=== PATIENT | female | born 1995 | race Caucasian/White ===

== ENCOUNTER 2021-10-31 11:50 | Inpatient (IN) ==
[2021-10-31] MEDS ORDERED: HYDROmorphone INJ 1 MG/ML SYRINGE IV STA ×2 (12:20→15:56)
[2021-10-31] MEDS ORDERED: ONDANSETRON INJ 2 MG/ML 2 ML VIAL IV STA (12:20)
--- NOTE | 2021-10-31 12:24 | Emergency Department Note ---
Impression & Plan Biliary obstruction, Elevated bilirubin ED Provider Note Name: VANESA FABIAN Age: 26 Sex: F Arrives Via: Walk-In Informant: Patient ED Provider: Andrew Alvarez MD Chief Complaint: Right upper quadrant pain Impression: As per impressions above Medical Decision Making: Pleasant 23-year-old female with a past medical history who arrives for acute onset of right upper quadrant pain over the last 6 days. She has been seen in outside hospital twice with outside hospital ultrasound revealing gallbladder stones and labs revealing elevated bilirubin and LFTs. Initial plan was for her to see general surgery in the next few days however due to concerning pain she returned to the ER and came here. On evaluation patient is quite uncomfortable and was made more comfortable with IV Dilaudid. Rather than get ultrasound given its already been done multiple twice it was decided to go ahead with CT scanning. CT scan reveals multiple gallstones but no acute other findings. Her labs are consistent with elevated LFTs and a bilirubin of 4. Given this I suspect there is an obstructing biliary stone. Patient was given further pain meds due to return of pain. She does not have a fever nor white count and after discussion with GI we will hold off on antibiotics at this time. I did discuss briefly with general surgery to make them aware that they agree with GI evaluation and management first. Discussing with GI the hospitalist team was consulted for further management. At this time patient is not septic. Prior Medical Record and Triage/Nursing Notes reviewed by Me Additional history obtained from [facility] records Differentials:Cholecystitis, biliary dysfunction, obstruction biliary stone, sepsis, diverticulitis, IVC clot, aortic aneurysm/rupture/dissection, mesenteric ischemia, , appendicitis, amongst other pathologies. Vital Signs: reviewed and remarkable for no significant abnormalities Interventions: Dilaudid 1 mg IV x2, normal saline bolus, Zofran IV Labs:Reviewed and remarkable for elevated LFTs including an elevated bilirubin Imaging:CT scan of the abdomen pelvis with IV contrast reveals gallstones see radiologist read below Consults:Dr. Lea of general surgery, Dr. Mays of GI, Dr Sears of [facility] Hospitalist Plan: Disposition:Hospitalization. Condition: Good History of Present Illness:6-year-old female arrives for evaluation of right upper quadrant pain patient notes that she started having pain about 6 days ago. Pain is gradually been worsening. Pain is worse with movement and eating. Pain is slightly better if she does not eat anything. Over the last 24 hours pain has been constant without improvement. She has been seen at local ER for her this twice in the last few days with an ultrasound which showed gallstones but she notes nothing else. She did not have a CT scan at that time but did have multiple labs which she reports are normal. Patient denies any trauma, injuries, falls. Patient denies any diarrhea no blood in stool. She notes vomit is not bloody. Pain does come in waves and is sharp in nature. Pain is in right upper quadrant but radiates to the right flank and sometimes in the right lower chest. Pain is worse with a deep inspiration and at times she feels like she cannot catch her breath when the pain is really severe. She had no urinary burning no diarrhea no chest pain no syncope no headache no neck pain no calf pain no leg swelling no bleeding no bruising no fevers no chills no other symptoms. Patient has no previous abdominal surgeries. Patient has been taking [place] for the pain with minimal relief. ROS: See above HPI for pertinent positives & negatives. A total of 10 systems reviewed and were otherwise negative. Past Medical History:None Past Surgical History:No previous surgeries Family History:Father and brother both with gallbladder dysfunction have had them removed Social History:Patient denies smoking denies alcohol use denies drug use. Patient has 1 daughter at home. Home Medications:None Allergies:Sulfa Vitals:Blood Pressure: 132/81, Pulse 74, RR 18, T 36.7C, O2 100% on RA Physical Exam: GENERAL: Patient is very uncomfortable appearing and in moderate distress. EYES: No scleral icterus, unremarkable pupils. ENT: Mucous membranes moist, no nasal congestion. NECK: No masses appreciated, nomeningismus, trachea is midline. RESPIRATORY: No dyspnea. Clear to auscultation and equal bilaterally. No wheeze, no rhonchi. CARDIOVASCULAR: Regular rate and rhythm.No murmurs, rubs, gallops appreciated. GASTROINTESTINAL: Severe TTP over RUQ. Otherwise abdomen soft, non-tender, no peritonitis.Bowel sounds positive.No masses appreciated. BACK: No midline tenderness, no CVA tenderness EXTREMITIES: Normal motion all extremities, no cyanosis, no edema. NEUROLOGIC: Alert and oriented, no acute motor or sensory deficits, no focal weakness, cranial nerves grossly intact. SKIN: No rash, no jaundice, no diaphoresis. PSYCH: Appropriate GCS: 15 ED Course: Times/Reassessments: Patient's pain is controlled with Dilaudid and she is stable without peritonitis. She is agreeable to hospitalization for further management of her issues. Andrew Alvarez MD Past Med/Surg History Social History Feels Safe at Home: Yes Home Meds Home Medications Medication Instructions Recorded Confirmed ondansetron HCl 4 mg tablet 4 mg PO DAILY PRN 10/31/21 10/31/21 Results & Data (ED) Vital Signs Vital Signs - 24 hr 10/31/21 11:56 10/31/21 13:00 10/31/21 15:00 Temperature 36.7 C Temperature Source Temporal Artery Scan Pulse Rate 74 Pulse Rate [Right Finger] 73 62 Pulse Rhythm [Right Finger] Regular Regular Pulse Strength [Right Finger] Normal Normal Respiratory Rate 18 18 18 Respiratory Effort / Characteristics Non-Labored Non-Labored Non-Labored Respiratory Depth Normal Normal Normal Respiratory Pattern Regular Regular Regular Blood Pressure 132/81 Blood Pressure [Right Arm] 128/66 132/75 Blood Pressure Mean 98 Blood Pressure Mean [Right Arm] 86 94 Blood Pressure Position Sitting Blood Pressure Position [Right Arm] Lying Lying Pulse Oximetry 100 93 100 Oxygen Delivery Method Room Air Room Air Room Air Sepsis Recent Fever Within 48 Hours No Sepsis New/Unexplained Change in Mental Status No Sepsis Action Taken by Nursing No Action Required Laboratory Data Result diagrams: 10/31/21 12:40 10/31/21 12:40 Lab Results 10/31/21 10/31/21 10/31/21 Range/Units 12:40 12:40 12:40 WBC 7.76 (4.8-10.8) K/uL RBC 4.74 (4.2-5.4) M/uL Hgb 13.9 (12.0-16.0) g/dL Hct 41.6 (37-47) % MCV 87.8 (80-100) fL MCH 29.3 (25-34) pg MCHC 33.4 (32-36) g/dL RDW Std Deviation 41.8 (36.4-46.3) fL RDW Coeff of Bart 12.9 (11.5-14.5) % Plt Count 335 (130-400) K/uL MPV 10.2 (7.4-10.4) fL Immature Gran % (Auto) 0.1 % Neut % (Auto) 68.2 % Lymph % (Auto) 21.9 % [place] % (Auto) 6.7 % Eos % (Auto) 3.0 % Baso % (Auto) 0.1 % Neut # (Auto) 5.29 (1.4-6.5) K/uL Lymph # (Auto) 1.70 (1.2-3.4) K/uL [place] # (Auto) 0.52 (0.11-0.59) K/uL Eos # (Auto) 0.23 (0-0.5) K/uL Baso # (Auto) 0.01 (0-0.2) K/uL Immature Gran # (Auto) 0.01 (0.00-0.02) K/uL D-Dimer Cancelled Sodium 137 (136-145) mmol/L Potassium 3.9 (3.5-5.1) mmol/L Chloride 103 (98-107) mmol/L Carbon Dioxide 24 (21-32) mmol/L Anion Gap 10 (3-11) BUN 8 (6-23) mg/dl Creatinine 0.71 (0.6-1.2) mg/dl Est Cr Clr Drug Dosing 136.0 ml/min Est GFR ( Amer) 135.3 ml/min Est GFR (Non-Af Amer) 116.7 ml/min BUN/Creatinine Ratio 11.3 (10-20) Glucose 90 (70-99(Fasting)) mg/dl Calcium 9.3 (8.5-10.1) mg/dl Total Bilirubin 4.5 H (0.2-1.0) mg/dl Direct Bilirubin 2.8 H (0-0.2) mg/dl AST 236 H (13-39) U/L ALT 603 H (7-52) U/L Alkaline Phosphatase 179 H (34-104) U/L Troponin I < 0.03 (0-0.04) ng/ml Total Protein 7.5 (6.0-8.3) gm/dl Albumin 3.9 (3.4-5.0) gm/dl Lipase 25 (11-82) U/L Urine Color Urine Appearance (Clear) Urine pH (4.5-7.5) Ur Specific [place] (1.000-1.030) Urine Protein (Negative) Urine Glucose (UA) (Negative) Urine Ketones (Negative) Urine Blood (Negative) Urine Nitrite (Negative) Urine Bilirubin (Negative) Urine Urobilinogen (Negative) Ur Leukocyte Esterase (Negative) Urine WBC (Auto) (0-5) /hpf Urine RBC (Auto) (0-4) /hpf U Hyaline Cast (Auto) (0-5) /lpf U Epithel Cells (Auto) (0-5) /lpf Urine Bacteria (Auto) (Negative) Urine Test (Negative) SARS-CoV-2, RNA, NAAT (NEGATIVE) 10/31/21 10/31/21 10/31/21 Range/Units 13:33 13:33 13:48 WBC (4.8-10.8) K/uL RBC (4.2-5.4) M/uL Hgb (12.0-16.0) g/dL Hct (37-47) % MCV (80-100) fL MCH (25-34) pg MCHC (32-36) g/dL RDW Std Deviation (36.4-46.3) fL RDW Coeff of Bart (11.5-14.5) % Plt Count (130-400) K/uL MPV (7.4-10.4) fL Immature Gran % (Auto) % Neut % (Auto) % Lymph % (Auto) % [place] % (Auto) % Eos % (Auto) % Baso % (Auto) % Neut # (Auto) (1.4-6.5) K/uL Lymph # (Auto) (1.2-3.4) K/uL [place] # (Auto) (0.11-0.59) K/uL Eos # (Auto) (0-0.5) K/uL Baso # (Auto) (0-0.2) K/uL Immature Gran # (Auto) (0.00-0.02) K/uL D-Dimer 810 H* Sodium (136-145) mmol/L Potassium (3.5-5.1) mmol/L Chloride (98-107) mmol/L Carbon Dioxide (21-32) mmol/L Anion Gap (3-11) BUN (6-23) mg/dl Creatinine (0.6-1.2) mg/dl Est Cr Clr Drug Dosing ml/min Est GFR ( Amer) ml/min Est GFR (Non-Af Amer) ml/min BUN/Creatinine Ratio (10-20) Glucose (70-99(Fasting)) mg/dl Calcium (8.5-10.1) mg/dl Total Bilirubin (0.2-1.0) mg/dl Direct Bilirubin (0-0.2) mg/dl AST (13-39) U/L ALT (7-52) U/L Alkaline Phosphatase (34-104) U/L Troponin I (0-0.04) ng/ml Total Protein (6.0-8.3) gm/dl Albumin (3.4-5.0) gm/dl Lipase (11-82) U/L Urine Color Dark Yellow Urine Appearance Clear (Clear) Urine pH 7.5 (4.5-7.5) Ur Specific [place] 1.016 (1.000-1.030) Urine Protein Negative (Negative) Urine Glucose (UA) Negative (Negative) Urine Ketones 1+ H (Negative) Urine Blood Negative (Negative) Urine Nitrite Negative (Negative) Urine Bilirubin 3+ H (Negative) Urine Urobilinogen Negative (Negative) Ur Leukocyte Esterase Trace H (Negative) Urine WBC (Auto) 1-5 (0-5) /hpf Urine RBC (Auto) 0-4 (0-4) /hpf U Hyaline Cast (Auto) 1-5 (0-5) /lpf U Epithel Cells (Auto) >30 H (0-5) /lpf Urine Bacteria (Auto) Negative (Negative) Urine Test Negative (Negative) SARS-CoV-2, RNA, NAAT (NEGATIVE) 10/31/21 Range/Units 14:15 WBC (4.8-10.8) K/uL RBC (4.2-5.4) M/uL Hgb (12.0-16.0) g/dL Hct (37-47) % MCV (80-100) fL MCH (25-34) pg MCHC (32-36) g/dL RDW Std Deviation (36.4-46.3) fL RDW Coeff of Bart (11.5-14.5) % Plt Count (130-400) K/uL MPV (7.4-10.4) fL Immature Gran % (Auto) % Neut % (Auto) % Lymph % (Auto) % [place] % (Auto) % Eos % (Auto) % Baso % (Auto) % Neut # (Auto) (1.4-6.5) K/uL Lymph # (Auto) (1.2-3.4) K/uL [place] # (Auto) (0.11-0.59) K/uL Eos # (Auto) (0-0.5) K/uL Baso # (Auto) (0-0.2) K/uL Immature Gran # (Auto) (0.00-0.02) K/uL D-Dimer Sodium (136-145) mmol/L Potassium (3.5-5.1) mmol/L Chloride (98-107) mmol/L Carbon Dioxide (21-32) mmol/L Anion Gap (3-11) BUN (6-23) mg/dl Creatinine (0.6-1.2) mg/dl Est Cr Clr Drug Dosing ml/min Est GFR ( Amer) ml/min Est GFR (Non-Af Amer) ml/min BUN/Creatinine Ratio (10-20) Glucose (70-99(Fasting)) mg/dl Calcium (8.5-10.1) mg/dl Total Bilirubin (0.2-1.0) mg/dl Direct Bilirubin (0-0.2) mg/dl AST (13-39) U/L ALT (7-52) U/L Alkaline Phosphatase (34-104) U/L Troponin I (0-0.04) ng/ml Total Protein (6.0-8.3) gm/dl Albumin (3.4-5.0) gm/dl Lipase (11-82) U/L Urine Color Urine Appearance (Clear) Urine pH (4.5-7.5) Ur Specific [place] (1.000-1.030) Urine Protein (Negative) Urine Glucose (UA) (Negative) Urine Ketones (Negative) Urine Blood (Negative) Urine Nitrite (Negative) Urine Bilirubin (Negative) Urine Urobilinogen (Negative) Ur Leukocyte Esterase (Negative) Urine WBC (Auto) (0-5) /hpf Urine RBC (Auto) (0-4) /hpf U Hyaline Cast (Auto) (0-5) /lpf U Epithel Cells (Auto) (0-5) /lpf Urine Bacteria (Auto) (Negative) Urine Test (Negative) SARS-CoV-2, RNA, NAAT NEGATIVE (NEGATIVE) Administered Medications Discontinued Medications Hydromorphone HCl (Hydromorphone Inj 1 Mg/Ml Syringe) 1 mg IV NOW STA Stop: 10/31/21 12:21 Last Admin: 10/31/21 12:50 Dose: 1 mg Documented by: [id number] Hydromorphone HCl (Hydromorphone Inj 1 Mg/Ml Syringe) 1 mg IV NOW STA Stop: 10/31/21 15:57 Last Admin: 10/31/21 16:04 Dose: 1 mg Documented by: [id number] Ioversol (Optiray 320 100ml) 94 ml IV ONCE ONE Stop: 10/31/21 14:26 Last Admin: 10/31/21 14:26 Dose: 94 ml Documented by: [id number] Ondansetron HCl (Ondansetron Inj 2 Mg/Ml 2 Ml Vial) 4 mg IV NOW STA Stop: 10/31/21 12:21 Last Admin: 10/31/21 12:49 Dose: 4 mg Documented by: [id number] Imaging Data Radiologist's Impression: Chest X-Ray 10/31/21 12:20 SINGLE VIEW CHEST CLINICAL HISTORY: Right upper quadrant abdominal pain FINDINGS: An AP, portable, upright chest radiograph is obtained. No prior studies are available for comparison at the time of dictation. The cardiomediastinal silhouette is unremarkable. The lungs and pleural spaces are clear. No pneumothorax is seen. The bony thorax is grossly intact. IMPRESSION: No active disease in the chest. ACT 112: Negative or not required by law. Electronically signed by: Villa Blanchard M.D. 10/31/2021 1:45 PM Abdomen/Pelvis CT 10/31/21 13:22 CT SCAN OF THE ABDOMEN AND PELVIS WITH IV CONTRAST CLINICAL HISTORY: Right upper quadrant abdominal pain. Elevated hepatic transaminases. COMPARISON STUDY: No priors. TECHNIQUE: Following the IV administration of 94 cc of Optiray 320, CT scan of the abdomen and pelvis is performed from the lung bases to the proximal femora. Images are reviewed in the axial, sagittal, and coronal planes. IV contrast was administered without complication. A dose lowering technique was utilized adhering to the principles of ALARA. CT DOSE: 1046.01 mGy.cm FINDINGS: Lung bases: The heart is normal in size and without pericardial effusion. The lung bases are clear noting dependent atelectasis. Liver: The contrast-enhanced liver is enlarged, measuring 21.1 cm in length. The liver demonstrates diffusely diminished attenuation consistent with hepatic steatosis. There is no intrahepatic biliary ductal dilatation. The hepatic veins and portal veins are patent. Gallbladder: There are numerous gallstones with no CT evidence of acute cholecystitis. Spleen: Normal in size and attenuation. Pancreas: Unremarkable. Adrenal glands: Unremarkable. Kidneys: The contrast enhanced kidneys are normal in size and without hydronephrosis. The kidneys enhance symmetrically. Abdominal vasculature: The abdominal aorta is normal in course and caliber. Bowel: There is no bowel obstruction. The appendix is surgically absent. Peritoneum: There is no intraperitoneal free air or abdominal ascites. Lymphadenopathy: None. Pelvic viscera: The bladder, uterus, and adnexa are normal as visualized noting bilateral ovarian follicles. There is trace free fluid in the cul-de-sac. Skeletal structures: No lytic or blastic lesions are seen. Sclerotic change is noted in the sacroiliac joints. IMPRESSION: 1. There are no acute infectious or inflammatory findings in the abdomen or pelvis. 2. Hepatomegaly and hepatic steatosis. 3. Cholelithiasis. 4. Trace free fluid in the cul-de-sac is nonspecific and likely physiologic. ACT 112: Negative or not required by law. Electronically signed by: Villa Blanchard M.D. 10/31/2021 2:40 PM Discharge Plan Visit Data Chief Complaint: Abdominal Pain Stated Complaint: ABD PAIN,NAUSEA AND VOMITING ED Provider: Andrew Alvarez Discharge Problem: Biliary obstruction, Elevated bilirubin Forms Stand Alone Forms: [employer] ([place]) Prescriptions Prescriptions: No Action ondansetron HCl 4 mg tablet 4 mg PO DAILY PRN (Reason: Nausea) RF: 0 Referrals Referrals: PCP,NO [Primary Care Provider] -
[2021-10-31 12:53] LABS: Basophils # (auto) 0.01 K/uL (0-0.2); Basophils % (auto) 0.1 %; Eosinophils # (auto) 0.23 K/uL (0-0.5); Hematocrit (blood only) 41.6 % (37-47); Hemoglobin 13.9 g/dL (12.0-16.0); Immature Granulocytes # (auto) 0.01 K/uL (0.00-0.02); Immature Granulocytes % (auto) 0.1 %; Lymphocytes % (auto) 21.9 %; Mean Corpuscular Hemoglobin 29.3 pg (25-34); Mean Corpuscular Hgb Conc 33.4 g/dL (32-36); Mean Corpuscular Volume 87.8 fL (80-100); Mean Platelet Volume 10.2 fL (7.4-10.4); Monocytes # (auto) 0.52 K/uL (0.11-0.59); Monocytes % (auto) 6.7 %; Neutrophils # (auto) 5.29 K/uL (1.4-6.5); Neutrophils % (auto) 68.2 %; Platelet Count 335 K/uL (130-400); RDW Coefficient of Variation 12.9 % (11.5-14.5); RDW Standard Deviation 41.8 fL (36.4-46.3); Red Blood Count 4.74 M/uL (4.2-5.4); White Blood Count 7.76 K/uL (4.8-10.8)
[2021-10-31 13:17] LABS: Troponin I < 0.03 ng/ml (0-0.04)
[2021-10-31 13:43] LABS: Appearance Urine Clear (Clear); Bacteria Urine Automated Negative (Negative); Blood Urine Negative (Negative); Color Urine Dark Yellow; Epithelial Cell Urine Auto >30 /lpf (0-5); Glucose Urine UA Negative (Negative); Ketones Urine 1+ (Negative); Leukocyte Esterase Urine Trace (Negative); Nitrite Urine Negative (Negative); Protein Urine Negative (Negative); RBC Urine Automated 0-4 /hpf (0-4); Specific Gravity Urine 1.016 (1.000-1.030); Urobilinogen Urine Negative (Negative); pH Urine 7.5 (4.5-7.5)
[2021-10-31 13:44] LABS: Bilirubin Urine 3+ (Negative); Pregnancy Test, Urine Negative (Negative)
--- NOTE | 2021-10-31 13:46 | XRay Report ---
SINGLE VIEW CHEST CLINICAL HISTORY: Right upper quadrant abdominal pain FINDINGS: An AP, portable, upright chest radiograph is obtained. No prior studies are available for c omparison at the time of dictation. The cardiomediastinal silhouette is unremarkable. The lungs and pleural spaces are clear. No pneumothorax is seen. The bony thorax is grossly intact. IMPRESSION: No active disease in the chest. ACT 112: Negative or not required by law. Electronically signed by: Villa Blanchard M.D. 10/31/2021 1:45 PM
[2021-10-31 13:52] LABS: Alanine Aminotransferase 603 U/L (7-52); Albumin Level 3.9 gm/dl (3.4-5.0); Alkaline Phosphatase 179 U/L (34-104); Anion Gap 10 (3-11); BUN Creatinine Ratio 11.3 (10-20); Bilirubin,Total 4.5 mg/dl (0.2-1.0); Blood Urea Nitrogen 8 mg/dl (6-23); Calcium 9.3 mg/dl (8.5-10.1); Carbon Dioxide 24 mmol/L (21-32); Chloride 103 mmol/L (98-107); Est GFR (African American) 135.3 ml/min; Est GFR (Non-African American) 116.7 ml/min; Glucose 90 mg/dl (70-99(Fasting)); Lipase 25 U/L (11-82); Sodium 137 mmol/L (136-145); Total Protein 7.5 gm/dl (6.0-8.3)
[2021-10-31] MEDS ORDERED: OPTIRAY 320 100ml IV ONE (14:25)
--- NOTE | 2021-10-31 14:41 | CT Scan Report ---
CT SCAN OF THE ABDOMEN AND PELVIS WITH IV CONTRAST CLINICAL HISTORY: Right upper quadrant abdominal pain. Elevated hepatic transaminases. COMPARISON STUDY: No priors. TECHNIQUE: Following the IV administration of 94 cc of Optiray 320, CT scan of the abdomen and pelvi s is performed from the lung bases to the proximal femora. Images are reviewed in the axial, sagittal , and coronal planes. IV contrast was administered without complication. A dose lowering technique wa s utilized adhering to the principles of ALARA. CT DOSE: 1046.01 mGy.cm FINDINGS: Lung bases: The heart is normal in size and without pericardial effusion. The lung bases are clear no ting dependent atelectasis. Liver: The contrast-enhanced liver is enlarged, measuring 21.1 cm in length. The liver demonstrates d iffusely diminished attenuation consistent with hepatic steatosis. There is no intrahepatic biliary d uctal dilatation. The hepatic veins and portal veins are patent. Gallbladder: There are numerous gallstones with no CT evidence of acute cholecystitis. Spleen: Normal in size and attenuation. Pancreas: Unremarkable. Adrenal glands: Unremarkable. Kidneys: The contrast enhanced kidneys are normal in size and without hydronephrosis. The kidneys enh ance symmetrically. Abdominal vasculature: The abdominal aorta is normal in course and caliber. Bowel: There is no bowel obstruction. The appendix is surgically absent. Peritoneum: There is no intraperitoneal free air or abdominal ascites. Lymphadenopathy: None. Pelvic viscera: The bladder, uterus, and adnexa are normal as visualized noting bilateral ovarian fol licles. There is trace free fluid in the cul-de-sac. Skeletal structures: No lytic or blastic lesions are seen. Sclerotic change is noted in the sacroilia c joints. IMPRESSION: 1. There are no acute infectious or inflammatory findings in the abdomen or pelvis. 2. Hepatomegaly and hepatic steatosis. 3. Cholelithiasis. 4. Trace free fluid in the cul-de-sac is nonspecific and likely physiologic. ACT 112: Negative or not required by law. Electronically signed by: Villa Blanchard M.D. 10/31/2021 2:40 PM
--- NOTE | 2021-10-31 14:47 | Surgery Consultation ---
Date of Consultation October 31, 2021 Assessment & Plan (1) Cholelithiasis: This is a 26yF with no significant PMH who presents to the [facility] ED on 10/31/21 with complaints of abdominal pain. CT a/p performed revealed + cholelithiasis with no CT evidence of acute cholecystitis. Labs are notable for elevated LFTs, Tb: 4.5, Db: 2.8, AST: 236, ALT: 603, ALkp: 179, Lipase: 25. WBC normal at 7.7 and patient's vital signs are stable. Patient is acutely tender in the RUQ. Based on elevation of LFTs and imaging there is a high likelihood of choledocholithiasis. GI is on board and planning on ERCP. Based on current OR schedule we would like to proceed with a combo ERCP/lap dion tomorrow. Patient is agreeable with the plan. Hospitalists will admit patient, okay for clears today but NPO at midnight. IV abx are ordered. Covid negative. Supervising Physician Co-Signing Physician Notes Pnt S&E, agree with above. 26 year old female with cholelithiasis and choledocholithiasis. GI plans for ERCP under same anesthesia, tomorrow in OR plan for laparoscopic cholecystectomy with possible cholangiogram tomorrow in OR with ERCP by GI risks discussed to include but not limited to bleeding, infection, retained stone, bile leak, open surgery, damage to surrounding structures including bile duct, need for future or more extensive surgery, failure to treat symptoms, and risks of anesthesia. Appreciate GI and medicine assistance with this patient. clears today, npo after midnight, abx, ivf's, hold nsaid's and lovenox History of Present Illness History of Present Illness This is a 26yF with no significant PMH who presents to the [facility] ED on 10/31/21 with complaints of abdominal pain. She reports her abdominal pain started over the last 5-6 days. It hurts when she tries to take deep breaths and majority of pain is located in the right upper abdomen. She has been evaluated at a local ER and was told she had gallstones and was suppose to follow up as an outpatient. She presented to our ER today due to ongoing worsening pain. Today she underwent a CT a/p performed revealed + cholelithiasis with no CT evidence of acute cholecystitis. She states she has no issues with eating spicy/greasy/fatty foods. Her past abdominal surgical history includes a lap appendectomy and c- section 4 years ago. Allergies Allergy/AdvReac Type Severity Reaction Status Date / Time Sulfa (Sulfonamide Allergy Unknown Verified 10/31/21 16:17 Antibiotics) Home Medications Medication Instructions Recorded Confirmed Type ondansetron HCl 4 mg tablet 4 mg PO DAILY PRN 10/31/21 10/31/21 History Patient History Surgical History (Updated 10/31/21 @ 16:21 by Micki Frausto PA-C) H/O: History of laparoscopic appendectomy Social History Feels Safe at Home: Yes Review of Systems Constitutional: no fever and no chills Respiratory: pain with taking a deep breath Gastrointestinal: + abdominal pain; no vomiting Physical Exam Physical Exam: awake/alert Respiratory: normal respiratory effort Gastrointestinal (Abdomen): Percussion/Palpation: + abdomen tender (ttp in RUQ) and abdomen soft Results & Data ([facility]) Vital Signs (Past 12 Hours) Vital Signs Temp Pulse Pulse Resp BP BP Pulse Ox 10/31/21 13:00 73 18 128/66 93 10/31/21 11:56 36.7 C 74 18 132/[address] SCAN OF THE ABDOMEN AND PELVIS WITH IV CONTRAST CLINICAL HISTORY: Right upper quadrant abdominal pain. Elevated hepatic transaminases. COMPARISON STUDY: No priors. TECHNIQUE: Following the IV administration of 94 cc of Optiray 320, CT scan of the abdomen and pelvis is performed from the lung bases to the proximal femora. Images are reviewed in the axial, sagittal, and coronal planes. IV contrast was administered without complication. A dose lowering technique was utilized adhering to the principles of ALARA. CT DOSE: 1046.01 mGy.cm FINDINGS: Lung bases: The heart is normal in size and without pericardial effusion. The lung bases are clear noting dependent atelectasis. Liver: The contrast-enhanced liver is enlarged, measuring 21.1 cm in length. The liver demonstrates diffusely diminished attenuation consistent with hepatic steatosis. There is no intrahepatic biliary ductal dilatation. The hepatic veins and portal veins are patent. Gallbladder: There are numerous gallstones with no CT evidence of acute cholecystitis. Spleen: Normal in size and attenuation. Pancreas: Unremarkable. Adrenal glands: Unremarkable. Kidneys: The contrast enhanced kidneys are normal in size and without hydronephrosis. The kidneys enhance symmetrically. Abdominal vasculature: The abdominal aorta is normal in course and caliber. Bowel: There is no bowel obstruction. The appendix is surgically absent. Peritoneum: There is no intraperitoneal free air or abdominal ascites. Lymphadenopathy: None. Pelvic viscera: The bladder, uterus, and adnexa are normal as visualized noting bilateral ovarian follicles. There is trace free fluid in the cul-de-sac. Skeletal structures: No lytic or blastic lesions are seen. Sclerotic change is noted in the sacroiliac joints. IMPRESSION: 1. There are no acute infectious or inflammatory findings in the abdomen or pelvis. 2. Hepatomegaly and hepatic steatosis. 3. Cholelithiasis. 4. Trace free fluid in the cul-de-sac is nonspecific and likely physiologic. ACT 112: Negative or not required by law. Electronically signed by: Villa Blanchard M.D. 10/31/2021 2:40 PM PG Care Time/CCT Total # of Minutes Spent Total Time Spent with Patient: Total time spent is greater than 50% in coordination of care (as documented) at patient's floor/unit and/or counseling patient: Coding Level of Care Code 09012 Inpt Consult Level 3 Diagnoses Cholelithiasis K80.20
[2021-10-31 14:51] LABS: D Dimer 810 ug/L FEU (0-500)
--- NOTE | 2021-10-31 15:36 | Communication Note ---
Date of Service: October 31, 2021 Patient with gallstones and Bilirubin of 4 suggestive of higbh probability for choledocholithiaisis. Plan for EUS/ERCP tomorrow.
[2021-10-31] MEDS ORDERED: HYDROmorphone INJ 1 MG/ML SYRINGE IV PRN (15:56)
[2021-10-31] MEDS ORDERED: CONSULT PHARMACY STA (16:19)
--- NOTE | 2021-10-31 16:26 | History & Physical Report ---
Date of Service October 31, 2021 Assessment & Plan (1) Biliary obstruction: (2) Elevated bilirubin: (3) Elevated LFTs: (4) Cholelithiasis: Plan: Patient with suspected biliary obstruction causing elevated AST, ALT, Alk Phos, and Bilirubin. She has had poor PO intake and N/V. She has continued, severe pain in the RUQ. She was given Dilaudid in the ED which helped temporarily. Admit to Med/Surg. Monitor vitals General surgery and GI were consulted for this patient. GI plans for ERCP tomorrow, and Gen Surg plans on laparoscopic cholecystectomy tomorrow as well. Repeat CBC, CMP, direct bili in AM Continue clear liquid diet. NPO after midnight Zofran PRN nausea/vomiting Tylenol PRN mild pain, Morphine PRN severe pain Per Gen Surg- Zosyn prophylaxis prior to surgery Start D5W 1/2 NSS while not eating well (5) BMI 40.0-44.9, adult: (6) Tobacco abuse: Plan: Patient smokes a few cigarettes per day. Does not think she will need nicotine supplementation, but will let us know if this changes (7) DVT prophylaxis: Plan: SCDs since planned for surgery in AM Encourage ambulation as tolerated History of Present Illness Chief Complaint: Abdominal pain Primary Care Provider: NO PCP Patient is a 26 yo female who presented to the ED with 7 days of abdominal pain. Her pain has been severe for the past 5 days. She has had pain mostly in the right flank/side that wraps around to the RUQ. The pain is worse with a deep breath and certain movements. She otherwise doesn't feel SOB. She has had nausea and vomiting, but she hasn't been able to eat much of anything the past couple of days. She hasn't noticed that certain foods make her symptoms worse or that she had this type of pain in the past prior to now. She has family history of her brother and father needing cholecystectomy. She was seen at [facility] ED the past 2 days and was sent home on both occasions. Her LFTs yesterday showed AST 499, ALT 787, TBili 3.2. US showed cholelithiasis. She decided to come to the [facility] ER for another opinion because her pain came back today and was severe again. In the ED, patient was noted to have normal WBC counter, TBili 4.5, Direct Bili 2.8, AST 236, ALT 603, and Alk Phos 179. CT of the abd/pelvis showed Hepatomegaly and hepatic steatosis, ad cholelithiasis. No evidence of acute cholecystitis. Allergies Allergy/AdvReac Type Severity Reaction Status Date / Time Sulfa (Sulfonamide Allergy Unknown Verified 10/31/21 16:17 Antibiotics) Home Medications Medication Instructions Recorded Confirmed Type ondansetron HCl 4 mg tablet 4 mg PO DAILY PRN 10/31/21 10/31/21 History Past Med/Surg History Medical History (Updated 10/31/21 @ 16:46 by Micki Frausto PA-C) BMI 40.0-44.9, adult Tobacco abuse Surgical History (Updated 10/31/21 @ 16:21 by Micki Frausto PA-C) H/O: History of laparoscopic appendectomy Social History Feels Safe at Home: Yes Review of Systems Gastrointestinal: + abdominal pain, + bloating, + nausea and + vomiting Physical Exam Physical Exam: See Dr. Hua's addendum for physical exam details Results & Data Results & Data ([facility]) Vital Signs (Past 12 Hours) Vital Signs Temp Pulse Pulse Resp BP BP Pulse Ox 10/31/21 15:00 62 18 132/75 100 10/31/21 13:00 73 18 128/66 93 10/31/21 11:56 36.7 C 74 18 132/81 100 Laboratory Results Laboratory Results - last 24 hr 10/31/21 10/31/21 10/31/21 12:40 12:40 12:40 WBC 7.76 RBC 4.74 Hgb 13.9 Hct 41.6 MCV 87.8 MCH 29.3 MCHC 33.4 RDW Std Deviation 41.8 RDW Coeff of Bart 12.9 Plt Count 335 MPV 10.2 Immature Gran % (Auto) 0.1 Neut % (Auto) 68.2 Lymph % (Auto) 21.9 [place] % (Auto) 6.7 Eos % (Auto) 3.0 Baso % (Auto) 0.1 Neut # (Auto) 5.29 Lymph # (Auto) 1.70 [place] # (Auto) 0.52 Eos # (Auto) 0.23 Baso # (Auto) 0.01 Immature Gran # (Auto) 0.01 D-Dimer Cancelled Sodium 137 Potassium 3.9 Chloride 103 Carbon Dioxide 24 Anion Gap 10 BUN 8 Creatinine 0.71 Est Cr Clr Drug Dosing 136.0 Est GFR ( Amer) 135.3 Est GFR (Non-Af Amer) 116.7 BUN/Creatinine Ratio 11.3 Glucose 90 Calcium 9.3 Total Bilirubin 4.5 H Direct Bilirubin 2.8 H AST 236 H ALT 603 H Alkaline Phosphatase 179 H Troponin I < 0.03 Total Protein 7.5 Albumin 3.9 Lipase 25 Urine Color Urine Appearance Urine pH Ur Specific [place] Urine Protein Urine Glucose (UA) Urine Ketones Urine Blood Urine Nitrite Urine Bilirubin Urine Urobilinogen Ur Leukocyte Esterase Urine WBC (Auto) Urine RBC (Auto) U Hyaline Cast (Auto) U Epithel Cells (Auto) Urine Bacteria (Auto) Urine Test SARS-CoV-2, RNA, NAAT 10/31/21 10/31/21 10/31/21 13:33 13:33 13:48 WBC RBC Hgb Hct MCV MCH MCHC RDW Std Deviation RDW Coeff of Bart Plt Count MPV Immature Gran % (Auto) Neut % (Auto) Lymph % (Auto) [place] % (Auto) Eos % (Auto) Baso % (Auto) Neut # (Auto) Lymph # (Auto) [place] # (Auto) Eos # (Auto) Baso # (Auto) Immature Gran # (Auto) D-Dimer 810 H* Sodium Potassium Chloride Carbon Dioxide Anion Gap BUN Creatinine Est Cr Clr Drug Dosing Est GFR ( Amer) Est GFR (Non-Af Amer) BUN/Creatinine Ratio Glucose Calcium Total Bilirubin Direct Bilirubin AST ALT Alkaline Phosphatase Troponin I Total Protein Albumin Lipase Urine Color Dark Yellow Urine Appearance Clear Urine pH 7.5 Ur Specific [place] 1.016 Urine Protein Negative Urine Glucose (UA) Negative Urine Ketones 1+ H Urine Blood Negative Urine Nitrite Negative Urine Bilirubin 3+ H Urine Urobilinogen Negative Ur Leukocyte Esterase Trace H Urine WBC (Auto) 1-5 Urine RBC (Auto) 0-4 U Hyaline Cast (Auto) 1-5 U Epithel Cells (Auto) >30 H Urine Bacteria (Auto) Negative Urine Test Negative SARS-CoV-2, RNA, NAAT 10/31/21 14:15 WBC RBC Hgb Hct MCV MCH MCHC RDW Std Deviation RDW Coeff of Bart Plt Count MPV Immature Gran % (Auto) Neut % (Auto) Lymph % (Auto) [place] % (Auto) Eos % (Auto) Baso % (Auto) Neut # (Auto) Lymph # (Auto) [place] # (Auto) Eos # (Auto) Baso # (Auto) Immature Gran # (Auto) D-Dimer Sodium Potassium Chloride Carbon Dioxide Anion Gap BUN Creatinine Est Cr Clr Drug Dosing Est GFR ( Amer) Est GFR (Non-Af Amer) BUN/Creatinine Ratio Glucose Calcium Total Bilirubin Direct Bilirubin AST ALT Alkaline Phosphatase Troponin I Total Protein Albumin Lipase Urine Color Urine Appearance Urine pH Ur Specific [place] Urine Protein Urine Glucose (UA) Urine Ketones Urine Blood Urine Nitrite Urine Bilirubin Urine Urobilinogen Ur Leukocyte Esterase Urine WBC (Auto) Urine RBC (Auto) U Hyaline Cast (Auto) U Epithel Cells (Auto) Urine Bacteria (Auto) Urine Test SARS-CoV-2, RNA, NAAT NEGATIVE Diagnostic Findings CT ABD/PELVIS: IMPRESSION: 1. There are no acute infectious or inflammatory findings in the abdomen or pelvis. 2. Hepatomegaly and hepatic steatosis. 3. Cholelithiasis. 4. Trace free fluid in the cul-de-sac is nonspecific and likely physiologic. CXR: IMPRESSION: No active disease in the chest. Code Status & VTE Plan VTE Prophylaxis Plan VTE Prophylaxis will be ordered: Yes Supervising Physician Co-Signing Physician Notes Pt is a 26 y/o F with hx of obesity admitted for worsening abd pain with elevated LFTs PE: Mild distress due to pain HEENT: normal conjunctiva Cards: Normal S1/S2, no murmur Lungs: CTA, no wheezing or crackles Abd: Obese abd, Soft, TTP of the RUQ, no rebound TTP MSK: no edema Psych: AAOx3, normal affect A/P: Elevated LFTs, T bili and Abd pain: -2/2 Choledocholithiasis -no sign of pancreatitis or cholangitis or cholecystitis on CT abd - LFTs are better than pts recent lab from yesterday but T bili elevated compared to yesterday lab -Surgery and GI consulted: pt is sched to undergo ERCP/EUS and laparoscopic c holecystectomy tomorrow ----- NPO after MN, zosyn as abx prophylaxis -Clears until MN and since pt has been having severe nausea with decreased PO intake will do D51/2 100 cc/hr -Zofran and morphine prn - elevated D-dimer likely due to choledocholithiasis --- not suspecting DVT or PE Agree with A/P by Micki Frausto PA-C
[2021-10-31] MEDS ORDERED: MoRPHine SULFATE 4 MG/ML 1 ML CARP\\VIAL IV PRN (18:37)
[2021-10-31] MEDS ORDERED: ONDANSETRON INJ 2 MG/ML 2 ML VIAL IV PRN (18:37)
[2021-10-31] MEDS ORDERED: ACETAMINOPHEN 325 MG TAB PO PRN (18:37)
[2021-10-31] MEDS: D5W AND 1/2NSS 1,000 ML IV SCH (19:16)
[2021-10-31] MEDS ORDERED: PIPERACILL/TAZOBAC CONSULT ACTIVE PRN (21:10)
[2021-10-31] MEDS ORDERED: PIPERACILLIN/TAZOBACTAM 4.5 GM in DEXTROSE 5% 100 ML IV ONE (21:30)
[2021-11-01] MEDS: PIPERACILLIN/TAZOBACTAM 4.5 GM in DEXTROSE 5% 100 ML IV SCH ×3 (01:11→15:27)
[2021-11-01] MEDS ORDERED: diphenhydrAMINE 50 MG/ML VIAL IV STA (04:31)
[2021-11-01] MEDS: D5W AND 1/2NSS 1,000 ML IV SCH (04:33)
[2021-11-01 06:54] LABS: Basophils # (auto) 0.02 K/uL (0-0.2); Basophils % (auto) 0.3 %; Eosinophils # (auto) 0.33 K/uL (0-0.5); Hematocrit (blood only) 38.6 % (37-47); Hemoglobin 12.8 g/dL (12.0-16.0); Immature Granulocytes # (auto) 0.01 K/uL (0.00-0.02); Immature Granulocytes % (auto) 0.2 %; Lymphocytes # (auto) 1.74 K/uL (1.2-3.4); Lymphocytes % (auto) 26.4 %; Mean Corpuscular Hemoglobin 29.2 pg (25-34); Mean Corpuscular Hgb Conc 33.2 g/dL (32-36); Mean Corpuscular Volume 88.1 fL (80-100); Mean Platelet Volume 10.1 fL (7.4-10.4); Monocytes # (auto) 0.53 K/uL (0.11-0.59); Neutrophils # (auto) 3.96 K/uL (1.4-6.5); Neutrophils % (auto) 60.1 %; Platelet Count 301 K/uL (130-400); RDW Coefficient of Variation 13.1 % (11.5-14.5); Red Blood Count 4.38 M/uL (4.2-5.4); White Blood Count 6.59 K/uL (4.8-10.8)
[2021-11-01] MEDS ORDERED: ONDANSETRON INJ 2 MG/ML 2 ML VIAL ONE (06:59)
[2021-11-01] MEDS ORDERED: PROPOFOL IV EMULSION 10 MG/ML 20 ML VIAL IV ONE (06:59)
[2021-11-01] MEDS ORDERED: DEXAMETHASONE SOD INJ 4 MG/ML VIAL ONE (06:59)
[2021-11-01] MEDS ORDERED: LIDOCAINE 2% 2 ML VIAL/AMP(20MG/ML) INFIL ONE (06:59)
[2021-11-01] MEDS ORDERED: ROCURONIUM BROMIDE 10 MG/ML 5 ML VIAL IV ONE (06:59)
[2021-11-01] MEDS ORDERED: fentaNYL citrate 100 MCG/2 ML VIAL ONE ×2 (07:00→09:00)
[2021-11-01] MEDS ORDERED: MIDAZOLAM HCL 1 MG/ML 2ML VIAL ONE (07:00)
--- NOTE | 2021-11-01 07:06 | Anesthesiology Consultation ---
Date of Service November 01, 2021 Assessment & Plan (1) Encounter for pre-operative examination: Chart Review Chart Review: Acceptable Risk for Surgery History Surgery Operation Date: 11/01/21 11:00 Proposed Procedures p Laparoscopic Cholecystectomy - Fritz Lea DO, FACS s Endoscopic Retrograde Cholangiopancreato - Keith Mays MD Height/Weight Height: 5 ft 2 in Weight: 105.8 kg Allergies Allergy/AdvReac Type Severity Reaction Status Date / Time Sulfa (Sulfonamide Allergy Unknown Verified 10/31/21 16:17 Antibiotics) Medications Home Medications Medication Instructions Recorded Confirmed Last Taken ondansetron HCl 4 mg tablet 4 mg PO DAILY PRN 10/31/21 10/31/21 Unknown Active Medications Generic Name Dose Route Start Last Admin Trade Name Freq PRN Reason Stop Dose Admin Dextrose/Sodium Chloride 1,000 mls @ 100 mls/hr 10/31/21 18:37 11/01/21 04:33 D5w And 1/2nss IV 11/01/21 14:36 100 mls/hr .Q10H DORIAN Administration Piperacillin Sod/Tazobactam 120 mls @ 30 mls/hr 11/01/21 02:00 11/01/21 05:18 Sod 4.5 gm/ Dextrose IV 11/11/21 01:59 Infused Q8H DORIAN Infusion Protocol Morphine Sulfate 4 mg 10/31/21 18:37 10/31/21 22:03 Morphine Sulfate 4 Mg/Ml 1 Ml Carp\Vial IV 11/14/21 18:36 4 mg Q6 PRN Administration Severe Pain Ondansetron HCl 4 mg 10/31/21 18:37 10/31/21 20:57 Ondansetron Inj 2 Mg/Ml 2 Ml Vial IV 11/30/21 18:36 4 mg Q6H PRN Administration Nausea Past Medical History Medical History BMI 40.0-44.9, adult Tobacco abuse Past Surgical History Surgical History H/O: History of laparoscopic appendectomy Social History Smoking Status: Current every day smoker tobacco type: cigarettes Smoking cigarettes per day: 4 Hx Alcohol Use: No Hx Substance Use: No Physical Exam Vital Signs Last Vital Signs Temp 36.6 C 11/01/21 04:16 Pulse 80 11/01/21 04:16 Resp 16 11/01/21 04:16 BP 127/73 11/01/21 04:16 Pulse Ox 97 11/01/21 04:16 Testing Laboratory Results 11/01/21 06:43 Urine Color Dark Yellow 10/31/21 13:33 Urine Appearance Clear (Clear) 10/31/21 13:33 Urine pH 7.5 (4.5-7.5) 10/31/21 13:33 Ur Specific [place] 1.016 (1.000-1.030) 10/31/21 13:33 Urine Protein Negative (Negative) 10/31/21 13:33 Urine Glucose (UA) Negative (Negative) 10/31/21 13:33 Urine Ketones 1+ (Negative) H 10/31/21 13:33 Urine Nitrite Negative (Negative) 10/31/21 13:33 Ur Leukocyte Esterase Trace (Negative) H 10/31/21 13:33 Urine WBC (Auto) 1-5 /hpf (0-5) 10/31/21 13:33 Urine RBC (Auto) 0-4 /hpf (0-4) 10/31/21 13:33 U Hyaline Cast (Auto) 1-5 /lpf (0-5) 10/31/21 13:33 U Epithel Cells (Auto) >30 /lpf (0-5) H 10/31/21 13:33 Urine Bacteria (Auto) Negative (Negative) 10/31/21 13:33 Urine Test Negative (Negative) 10/31/21 13:33 10/31/21 13:33 Urine Test Negative
[2021-11-01 07:15] LABS: Albumin Level 3.5 gm/dl (3.4-5.0); BUN Creatinine Ratio 8.6 (10-20); Bilirubin Direct 2.4 mg/dl (0-0.2); Bilirubin,Total 3.6 mg/dl (0.2-1.0); Calcium 8.7 mg/dl (8.5-10.1); Creatinine Clr Calc Pharmacy 137.9 ml/min; Est GFR (African American) 137.6 ml/min; Est GFR (Non-African American) 118.7 ml/min; Globulin 3.4 gm/dl (2.5-4.0); Potassium 3.6 mmol/L (3.5-5.1); Total Protein 6.9 gm/dl (6.0-8.3)
[2021-11-01] MEDS ORDERED: BUPIVACAINE 0.5 % 5 MG/1 ML MPF 30ML VIAL ONE (07:23)
--- NOTE | 2021-11-01 07:31 | Gastrointestinal Consultation ---
Date of Consultation November 01, 2021 Assessment & Plan (1) Biliary obstruction: High probability for choledocholithiasis. Plan for EUS/ERCP today. Patient was explained in detail regarding risks, benefits, limitations and alternatives of the above endoscopic procedure. Risks of intravenous sedation used for procedure were also explained. Risks include, but not limited to perforation, bleeding, infection, respiratory distress, cardiac arrest and . Patient is also aware about the possibility of missed lesion. Patient's questions were answered. The patient verbalized understanding the information and agreed to undergo the procedure. (2) Elevated bilirubin: (3) Cholelithiasis: History of Present Illness Reason for Consultation: Abnormal LFT Attending Physician: Virginie Claros MD History of Present Illness 26 years old female patient presented to the hospital with abdominal pain, found to have gallstones and abnormal LFTs consistent with biliary obstruction. Reports nausea, denies fever or chills and no diarrhea.Pain is constant, epigastric/RUQ, nonradiating, sharp, aggravating after eating. Allergies Allergy/AdvReac Type Severity Reaction Status Date / Time Sulfa (Sulfonamide Allergy Unknown Verified 10/31/21 16:17 Antibiotics) Home Medications Medication Instructions Recorded Confirmed Type ondansetron HCl 4 mg tablet 4 mg PO DAILY PRN 10/31/21 10/31/21 History Patient History Medical History BMI 40.0-44.9, adult Tobacco abuse Surgical History H/O: History of laparoscopic appendectomy Social History Smoking Status: Current every day smoker Cigarettes Per Day: 4; Tobacco Cessation Education Requested by Patient: No Hx Alcohol Use: No Hx Substance Use: No Preferred Language: Romanian Communication Ability: Effective [employer] For [employer] Required: No Beliefs That Will Affect Care: None Current Living Situation: Significant Other Feels Safe at Home: Yes Safety Concerns: Feels Safe At This Time Assistive Devices: None Review of Systems Constitutional: no fever, no chills, no fatigue and no weight loss Eyes: no eye pain and no worsening vision Ear, Nose, Mouth, Throat: no tinnitus, no dizziness, no nasal discharge and no epistaxis Respiratory: no cough, no dyspnea, no dyspnea on exertion and no wheezing Cardiovascular: no chest pain, no orthopnea, no palpitations and no edema Gastrointestinal: as per Subjective / HPI Genitourinary: no dysuria, no urinary frequency, no urinary incontinence and no hematuria Musculoskeletal: no stiffness and no myalgia Neurologic: no localized weakness, no paralysis, no tremor(s) and no headache(s) Endocrine: no polydipsia and no polyuria Hematologic / Lymphatic: no easy bleeding and no night sweats Physical Exam Constitutional: + well hydrated, cooperative and comfortable Eyes: PERRL, conjunctivae normal, anicteric sclerae ENMT: external ear and nose normal, oropharynx normal Neck: normal visual inspection and trachea midline Respiratory: normal respiratory effort, lungs clear to auscultation Auscultation: no wheezes Cardiovascular: RRR, no murmur, no edema Gastrointestinal (Abdomen): normal bowel sounds, soft, nontender, no hepatosplenomegaly Musculoskeletal: no cyanosis or clubbing, extremities motor strength 5/5 Skin: no rashes, warm and dry Neurologic: awake; no focal motor deficits Motor/Sensory: no tremor Results & Data ([facility]) Vital Signs (Past 12 Hours) Vital Signs Temp Pulse Resp BP Pulse Ox 11/01/21 04:16 36.6 C 80 16 127/73 97 10/31/21 21:31 36.7 C 72 15 106/63 98 Laboratory Results Laboratory Results - last 24 hr 10/31/21 10/31/21 10/31/21 12:40 12:40 12:40 WBC 7.76 RBC 4.74 Hgb 13.9 Hct 41.6 MCV 87.8 MCH 29.3 MCHC 33.4 RDW Std Deviation 41.8 RDW Coeff of Bart 12.9 Plt Count 335 MPV 10.2 Immature Gran % (Auto) 0.1 Neut % (Auto) 68.2 Lymph % (Auto) 21.9 [place] % (Auto) 6.7 Eos % (Auto) 3.0 Baso % (Auto) 0.1 Neut # (Auto) 5.29 Lymph # (Auto) 1.70 [place] # (Auto) 0.52 Eos # (Auto) 0.23 Baso # (Auto) 0.01 Immature Gran # (Auto) 0.01 D-Dimer Cancelled Sodium 137 Potassium TNP Chloride 103 Carbon Dioxide 24 Anion Gap 10 BUN 8 Creatinine 0.71 Est Cr Clr Drug Dosing 136.0 Est GFR ( Amer) 135.3 Est GFR (Non-Af Amer) 116.7 BUN/Creatinine Ratio 11.3 Glucose 90 Calcium 9.3 Total Bilirubin 4.5 H Direct Bilirubin TNP AST TNP ALT 603 H Alkaline Phosphatase 179 H Troponin I < 0.03 Total Protein 7.5 Albumin 3.9 Globulin Albumin/Globulin Ratio Lipase 25 Urine Color Urine Appearance Urine pH Ur Specific [place] Urine Protein Urine Glucose (UA) Urine Ketones Urine Blood Urine Nitrite Urine Bilirubin Urine Urobilinogen Ur Leukocyte Esterase Urine WBC (Auto) Urine RBC (Auto) U Hyaline Cast (Auto) U Epithel Cells (Auto) Urine Bacteria (Auto) Urine Test SARS-CoV-2, RNA, NAAT 10/31/21 10/31/21 10/31/21 13:33 13:33 13:48 WBC RBC Hgb Hct MCV MCH MCHC RDW Std Deviation RDW Coeff of Bart Plt Count MPV Immature Gran % (Auto) Neut % (Auto) Lymph % (Auto) [place] % (Auto) Eos % (Auto) Baso % (Auto) Neut # (Auto) Lymph # (Auto) [place] # (Auto) Eos # (Auto) Baso # (Auto) Immature Gran # (Auto) D-Dimer 810 H* Sodium Potassium Chloride Carbon Dioxide Anion Gap BUN Creatinine Est Cr Clr Drug Dosing Est GFR ( Amer) Est GFR (Non-Af Amer) BUN/Creatinine Ratio Glucose Calcium Total Bilirubin Direct Bilirubin AST ALT Alkaline Phosphatase Troponin I Total Protein Albumin Globulin Albumin/Globulin Ratio Lipase Urine Color Dark Yellow Urine Appearance Clear Urine pH 7.5 Ur Specific [place] 1.016 Urine Protein Negative Urine Glucose (UA) Negative Urine Ketones 1+ H Urine Blood Negative Urine Nitrite Negative Urine Bilirubin 3+ H Urine Urobilinogen Negative Ur Leukocyte Esterase Trace H Urine WBC (Auto) 1-5 Urine RBC (Auto) 0-4 U Hyaline Cast (Auto) 1-5 U Epithel Cells (Auto) >30 H Urine Bacteria (Auto) Negative Urine Test Negative SARS-CoV-2, RNA, NAAT 10/31/21 11/01/21 11/01/21 14:15 06:43 06:43 WBC 6.59 RBC 4.38 Hgb 12.8 Hct 38.6 MCV 88.1 MCH 29.2 MCHC 33.2 RDW Std Deviation 42.0 RDW Coeff of Bart 13.1 Plt Count 301 MPV 10.1 Immature Gran % (Auto) 0.2 Neut % (Auto) 60.1 Lymph % (Auto) 26.4 [place] % (Auto) 8.0 Eos % (Auto) 5.0 Baso % (Auto) 0.3 Neut # (Auto) 3.96 Lymph # (Auto) 1.74 [place] # (Auto) 0.53 Eos # (Auto) 0.33 Baso # (Auto) 0.02 Immature Gran # (Auto) 0.01 D-Dimer Sodium 136 Potassium 3.6 Chloride 103 Carbon Dioxide 27 Anion Gap 6 BUN 6 Creatinine 0.70 Est Cr Clr Drug Dosing 137.9 Est GFR ( Amer) 137.6 Est GFR (Non-Af Amer) 118.7 BUN/Creatinine Ratio 8.6 L Glucose 115 H Calcium 8.7 Total Bilirubin 3.6 H Direct Bilirubin 2.4 H AST 120 H ALT 431 H Alkaline Phosphatase 159 H Troponin I Total Protein 6.9 Albumin 3.5 Globulin 3.4 Albumin/Globulin Ratio 1.0 Lipase Urine Color Urine Appearance Urine pH Ur Specific [place] Urine Protein Urine Glucose (UA) Urine Ketones Urine Blood Urine Nitrite Urine Bilirubin Urine Urobilinogen Ur Leukocyte Esterase Urine WBC (Auto) Urine RBC (Auto) U Hyaline Cast (Auto) U Epithel Cells (Auto) Urine Bacteria (Auto) Urine Test SARS-CoV-2, RNA, NAAT NEGATIVE
--- NOTE | 2021-11-01 07:56 | Surgery Progress Note ---
Date of Service November 01, 2021 Assessment & Plan (1) Choledocholithiasis with acute cholecystitis: Plan: 26 year old female with choledocholithiasis. plan for laparoscopic cholecystectomy with possible cholangiogram, ERCP by GI risks discussed to include but not limited to bleeding, infection, retained stone, bile leak, open surgery, damage to surrounding structures including bile duct, need for future or more extensive surgery, failure to treat symptoms, and risks of anesthesia. Admission and Anticipated Discharge Date Admission Date: October 31, 2021 Subjective admitted with choledocholithiasis. Pain slightly better. no changes. Physical Exam Constitutional: WD/WN, vitals as above Gastrointestinal (Abdomen): Percussion/Palpation: + abdomen tender (ruq) and abdomen soft; no guarding, abdomen not rigid and no hepatosplenomegaly Results & Data ([facility]) Vital Signs (Past 12 Hours) Vital Signs Temp Pulse Resp BP Pulse Ox 11/01/21 04:16 36.6 C 80 16 127/73 97 10/31/21 21:31 36.7 C 72 15 106/63 98 Laboratory Results Laboratory Results - last 24 hr 10/31/21 10/31/21 10/31/21 12:40 12:40 12:40 WBC 7.76 RBC 4.74 Hgb 13.9 Hct 41.6 MCV 87.8 MCH 29.3 MCHC 33.4 RDW Std Deviation 41.8 RDW Coeff of Bart 12.9 Plt Count 335 MPV 10.2 Immature Gran % (Auto) 0.1 Neut % (Auto) 68.2 Lymph % (Auto) 21.9 [place] % (Auto) 6.7 Eos % (Auto) 3.0 Baso % (Auto) 0.1 Neut # (Auto) 5.29 Lymph # (Auto) 1.70 [place] # (Auto) 0.52 Eos # (Auto) 0.23 Baso # (Auto) 0.01 Immature Gran # (Auto) 0.01 D-Dimer Cancelled Sodium 137 Potassium TNP Chloride 103 Carbon Dioxide 24 Anion Gap 10 BUN 8 Creatinine 0.71 Est Cr Clr Drug Dosing 136.0 Est GFR ( Amer) 135.3 Est GFR (Non-Af Amer) 116.7 BUN/Creatinine Ratio 11.3 Glucose 90 Calcium 9.3 Total Bilirubin 4.5 H Direct Bilirubin TNP AST TNP ALT 603 H Alkaline Phosphatase 179 H Troponin I < 0.03 Total Protein 7.5 Albumin 3.9 Globulin Albumin/Globulin Ratio Lipase 25 Urine Color Urine Appearance Urine pH Ur Specific [place] Urine Protein Urine Glucose (UA) Urine Ketones Urine Blood Urine Nitrite Urine Bilirubin Urine Urobilinogen Ur Leukocyte Esterase Urine WBC (Auto) Urine RBC (Auto) U Hyaline Cast (Auto) U Epithel Cells (Auto) Urine Bacteria (Auto) Urine Test SARS-CoV-2, RNA, NAAT 10/31/21 10/31/21 10/31/21 13:33 13:33 13:48 WBC RBC Hgb Hct MCV MCH MCHC RDW Std Deviation RDW Coeff of Bart Plt Count MPV Immature Gran % (Auto) Neut % (Auto) Lymph % (Auto) [place] % (Auto) Eos % (Auto) Baso % (Auto) Neut # (Auto) Lymph # (Auto) [place] # (Auto) Eos # (Auto) Baso # (Auto) Immature Gran # (Auto) D-Dimer 810 H* Sodium Potassium Chloride Carbon Dioxide Anion Gap BUN Creatinine Est Cr Clr Drug Dosing Est GFR ( Amer) Est GFR (Non-Af Amer) BUN/Creatinine Ratio Glucose Calcium Total Bilirubin Direct Bilirubin AST ALT Alkaline Phosphatase Troponin I Total Protein Albumin Globulin Albumin/Globulin Ratio Lipase Urine Color Dark Yellow Urine Appearance Clear Urine pH 7.5 Ur Specific [place] 1.016 Urine Protein Negative Urine Glucose (UA) Negative Urine Ketones 1+ H Urine Blood Negative Urine Nitrite Negative Urine Bilirubin 3+ H Urine Urobilinogen Negative Ur Leukocyte Esterase Trace H Urine WBC (Auto) 1-5 Urine RBC (Auto) 0-4 U Hyaline Cast (Auto) 1-5 U Epithel Cells (Auto) >30 H Urine Bacteria (Auto) Negative Urine Test Negative SARS-CoV-2, RNA, NAAT 10/31/21 11/01/21 11/01/21 14:15 06:43 06:43 WBC 6.59 RBC 4.38 Hgb 12.8 Hct 38.6 MCV 88.1 MCH 29.2 MCHC 33.2 RDW Std Deviation 42.0 RDW Coeff of Bart 13.1 Plt Count 301 MPV 10.1 Immature Gran % (Auto) 0.2 Neut % (Auto) 60.1 Lymph % (Auto) 26.4 [place] % (Auto) 8.0 Eos % (Auto) 5.0 Baso % (Auto) 0.3 Neut # (Auto) 3.96 Lymph # (Auto) 1.74 [place] # (Auto) 0.53 Eos # (Auto) 0.33 Baso # (Auto) 0.02 Immature Gran # (Auto) 0.01 D-Dimer Sodium 136 Potassium 3.6 Chloride 103 Carbon Dioxide 27 Anion Gap 6 BUN 6 Creatinine 0.70 Est Cr Clr Drug Dosing 137.9 Est GFR ( Amer) 137.6 Est GFR (Non-Af Amer) 118.7 BUN/Creatinine Ratio 8.6 L Glucose 115 H Calcium 8.7 Total Bilirubin 3.6 H Direct Bilirubin 2.4 H AST 120 H ALT 431 H Alkaline Phosphatase 159 H Troponin I Total Protein 6.9 Albumin 3.5 Globulin 3.4 Albumin/Globulin Ratio 1.0 Lipase Urine Color Urine Appearance Urine pH Ur Specific [place] Urine Protein Urine Glucose (UA) Urine Ketones Urine Blood Urine Nitrite Urine Bilirubin Urine Urobilinogen Ur Leukocyte Esterase Urine WBC (Auto) Urine RBC (Auto) U Hyaline Cast (Auto) U Epithel Cells (Auto) Urine Bacteria (Auto) Urine Test SARS-CoV-2, RNA, NAAT NEGATIVE PG Care Time/CCT Total # of Minutes Spent Total Time Spent with Patient: Total time spent is greater than 50% in coordination of care (as documented) at patient's floor/unit and/or counseling patient: Coding Level of Care Code 16025 Inpt Consult Level 2 Diagnoses Choledocholithiasis with acute cholecystitis K80.42
[2021-11-01] MEDS ORDERED: ONDANSETRON INJ 2 MG/ML 2 ML VIAL IV PRN (08:02)
[2021-11-01] MEDS ORDERED: fentaNYL citrate 100 MCG/2 ML VIAL IV PRN (08:02)
[2021-11-01] MEDS ORDERED: KETOROLAC 30 MG/ML VIAL IV PRN (08:02)
[2021-11-01] MEDS ORDERED: ATROPINE SULFATE 0.1 MG/ML 10ML SYR IV PRN (08:02)
[2021-11-01] MEDS ORDERED: PROMETHAZINE HCL 12.5 MG in SODIUM CHLORIDE 0.9% 50 ML IV PRN (08:02)
[2021-11-01] MEDS ORDERED: INDOMETHACIN 50 MG SUPP PR ONE (08:09)
--- NOTE | 2021-11-01 08:43 | Operative Report ---
Post Operative Report Pre & Post Diagnosis Operation Date: 11/01/21 11:00 Pre-Op Diagnosis: 1. Biliary obstruction 2. Elevated bilirubin 3. Cholelithiasis I identified the patient and participated in the time-out.: Yes Procedure Operation Date: 11/01/21 11:00 Actual Procedures p Laparoscopic Cholecystectomy - Fritz Lea DO, FACS s Endoscopic Retrograde Cholangiopancreatography with Sphincterotomy and Balloon Sweep - Keith Mays MD s Endoscopic Ultrasonography Upper - Keith Mays MD s Esophagogastroduodenoscopy - Keith Mays MD Surgeon Keith Mays MD Party Plan Dealer None Estimated Blood Loss 0 Findings See Below (Choledocholithiasis removed) Specimens None Description of Procedure ERCP I attest to the content of the Intraoperative Record and any orders documented therein. Any exceptions are noted below.
--- NOTE | 2021-11-01 08:49 | GI REPORT ---
Patient Name: Jess Velazquez Procedure Date: 11/01/2021 7:45 AM Date of : 1995 Admit Type: Inpatient Age: 26 Gender: Female Attending MD: Keith Mays MD Procedure: Upper GI endoscopy Providers: Keith Mays MD Referring MD: Laine Claros Md Indications: Abdominal pain in the right upper quadrant Medicines: Propofol per Anesthesia Complications: No immediate complications. Estimated Blood Loss: Estimated blood loss: none. Procedure: Pre-Anesthesia Assessment: - Prior to the procedure, a History and Physical was performed, and patient medications, allergies and sensitivities were reviewed. The patient's tolerance of previous anesthesia was reviewed. - The risks and benefits of the procedure and the sedation options and risks were discussed with the patient. All questions were answered and informed consent was obtained. - Patient identification and proposed procedure were verified prior to the procedure by the physician and the nurse. - Pre-procedure physical examination revealed no contraindications to sedation. After obtaining informed consent, the endoscope was passed under direct vision. Throughout the procedure, the patient's blood pressure, pulse, and oxygen saturations were monitored continuously. The Endoscope was introduced through the mouth, and advanced to the second part of duodenum. The upper GI endoscopy was accomplished without difficulty. The patient tolerated the procedure well. Findings: The examined esophagus was normal. The entire examined stomach was normal. The duodenal bulb and second portion of the duodenum were normal. Impression: - Normal esophagus. - Normal stomach. - Normal duodenal bulb and second portion of the duodenum. - No specimens collected. Recommendation: - Perform an upper endoscopic ultrasound (UEUS) today. Keith Mays MD 11/01/2021 8:48:15 AM This report has been signed electronically. Note Initiated On: 11/01/2021 7:45 AM Number of Addenda: 0 I attest to the content of the Intraoperative Record and orders documented therein, exceptions below {[id number]}
--- NOTE | 2021-11-01 08:51 | GI REPORT ---
Patient Name: Jess Velazquez Procedure Date: 11/01/2021 7:49 AM Date of : 1995 Admit Type: Inpatient Age: 26 Gender: Female Attending MD: Keith Mays MD Procedure: Upper EUS Providers: Keith Mays MD Referring MD: Laine Claros Md Indications: Elevated liver enzymes Medicines: Propofol per Anesthesia Complications: No immediate complications. Estimated Blood Loss: Estimated blood loss: none. Procedure: Pre-Anesthesia Assessment: - Prior to the procedure, a History and Physical was performed, and patient medications, allergies and sensitivities were reviewed. The patient's tolerance of previous anesthesia was reviewed. - The risks and benefits of the procedure and the sedation options and risks were discussed with the patient. All questions were answered and informed consent was obtained. - Patient identification and proposed procedure were verified prior to the procedure by the physician and the nurse. The procedure was verified in the procedure room. - Pre-procedure physical examination revealed no contraindications to sedation. After obtaining informed consent, the endoscope was passed under direct vision. Throughout the procedure, the patient's blood pressure, pulse, and oxygen saturations were monitored continuously. The scope was introduced through the mouth, and advanced to the second part of duodenum. The upper EUS was accomplished without difficulty. The patient tolerated the procedure well. Findings: ENDOSONOGRAPHIC FINDING: : There was no sign of significant endosonographic abnormality in the ampulla. No masses were identified. There was dilation in the common bile duct which measured up to 8 mm. Two stones were visualized endosonographically in the common bile duct. The stones measured up to 7 mm in greatest dimension. The stones were round. They were hyperechoic and characterized by shadowing. There was abnormal echogenicity in the visualized portion of the liver. This area was hyperechoic. There was no sign of significant endosonographic abnormality in the entire pancreas. The pancreatic duct measured up to 2 mm in diameter. There was no sign of significant endosonographic abnormality in the visualized portion of the left adrenal gland. There was no sign of significant endosonographic abnormality involving the celiac trunk. Impression: - There was no sign of significant pathology in the ampulla. - There was dilation in the common bile duct which measured up to 8 mm. - Two stones were visualized endosonographically in the common bile duct. - There was abnormal echogenicity in the visualized portion of the liver consistent with fatty infiltration. - There was no sign of significant pathology in the entire pancreas. - Endosonographic images of the left adrenal gland were unremarkable. - The celiac trunk was endosonographically normal. Recommendation: - Perform an ERCP today. Keith Mays MD 11/01/2021 8:50:49 AM This report has been signed electronically. Note Initiated On: 11/01/2021 7:49 AM Number of Addenda: 0 I attest to the content of the Intraoperative Record and orders documented therein, exceptions below {[id number]}
--- NOTE | 2021-11-01 08:53 | GI REPORT ---
Patient Name: Jess Velazquez Procedure Date: 11/01/2021 7:47 AM Date of : 1995 Admit Type: Inpatient Age: 26 Gender: Female Attending MD: Keith Mays MD Procedure: ERCP Providers: Keith Mays MD Referring MD: Laine Claros Md, Fritz Lea Do Indications: For therapy of bile duct stone(s) Medicines: General Anesthesia Complications: No immediate complications. Estimated Blood Loss: Estimated blood loss: none. Procedure: Pre-Anesthesia Assessment: - Prior to the procedure, a History and Physical was performed, and patient medications, allergies and sensitivities were reviewed. The patient's tolerance of previous anesthesia was reviewed. - The risks and benefits of the procedure and the sedation options and risks were discussed with the patient. All questions were answered and informed consent was obtained. - Patient identification and proposed procedure were verified prior to the procedure by the physician and the nurse. The procedure was verified in the procedure room. - Pre-procedure physical examination revealed no contraindications to sedation. After obtaining informed consent, the scope was passed under direct vision. Throughout the procedure, the patient's blood pressure, pulse, and oxygen saturations were monitored continuously. The Duodenoscope was introduced through the mouth, and advanced to the duodenum and used to inject contrast into the bile duct. The ERCP was accomplished without difficulty. The patient tolerated the procedure well. Findings: The flat folder film was normal. The esophagus was successfully intubated under direct vision. The scope was advanced to a normal major papilla in the descending duodenum without detailed examination of the pharynx, larynx and associated structures, and upper GI tract. The upper GI tract was grossly normal. A 0.035 inch angled standard wire was passed into the biliary tree. The Fusion OMNI sphincterotome was passed over the guidewire and the bile duct was then deeply cannulated. Contrast was injected. I personally interpreted the bile duct images. Ductal flow of contrast was adequate. Image quality was adequate. Contrast extended to the main bile duct. Opacification of the entire biliary tree except for the gallbladder was successful. The maximum diameter of the ducts was 8 mm. Biliary sphincterotomy was made with a monofilament traction (standard) sphincterotome using ERBE electrocautery. There was no post-sphincterotomy bleeding. The biliary tree was swept with a 15 mm balloon starting at the bifurcation. Two stones were removed. No stones remained. Indomethacin 100 mg was given via suppository to decrease the risk of post-ERCP pancreatitis (PEP). Impression: - Choledocholithiasis was found. Complete removal was accomplished by biliary sphincterotomy and balloon extraction. Recommendation: - Return patient to hospital pham for ongoing care. - Proceed with cholecystectomy. - Recall GI if needed. Keith Mays MD 11/01/2021 8:53:29 AM This report has been signed electronically. Note Initiated On: 11/01/2021 7:47 AM Number of Addenda: 0 I attest to the content of the Intraoperative Record and orders documented therein, exceptions below {[id number]}
[2021-11-01] MEDS ORDERED: NEOSTIGMINE METHYLSULFATE 1 MG/ML 10ML VIAL ONE (09:53)
[2021-11-01] MEDS ORDERED: GLYCOPYRROLATE 0.2 MG/ML VIAL ONE (09:53)
--- NOTE | 2021-11-01 10:13 | Operative Report ---
PG Post Operative Report Pre & Post Diagnosis Operation Date: 11/01/21 11:00 Pre-Op Diagnosis: Choledocholithiasis, cholecystitis Post-Op Diagnosis: Choledocholithiasis, cholecystitis I identified the patient and participated in the time-out.: Yes Procedure Operation Date: 11/01/21 11:00 Actual Procedures Laparoscopic Cholecystectomy - Fritz Lea DO, JANET Surgeon Fritz Lea DO, JANET Shopper Julio Cesar Desai Estimated Blood Loss 20 Findings Consistent with Post-Op Diagnosis (Choledocholithiasis removed) Acute cholecystitis. ERCP performed prior to procedure with clearance of duct from choledocholithiasis. Critical view of safety obtained. Cystic duct and artery doubly clipped and divided. Removed from liver bed controlled with electrocautery. Specimens Gallbladder Anesthesia Type General Complications none Disposition Accompanied Patient To Recovery: No Disposition: Recovery Room Indications 26-year-old female presented to the emergency department yesterday with choledocholithiasis and acute cholecystitis. She was admitted to the medicine service with plans for ERCP and cholecystectomy today. Plan for laparoscopic cholecystectomy with possible cholangiogram following ERCP. The risks of the procedure were discussed, all questions were answered, and the patient agreed to proceed with surgery as planned. Description of Procedure The patient was properly identified, consented, and taken to the operating room where she was placed in the supine position. General endotracheal anesthesia was induced. The patient underwent ERCP with clearance of her duct by GI, please see their procedure note for further details. SCDs and a safety belt were placed. Preoperative antibiotics were administered. The patient's abdomen was prepped and draped in the standard sterile fashion. A surgical timeout was performed and all parties were in agreement that this was the correct patient and procedure to be performed and we continued as planned. An incision was made superior and to the left of the umbilicus overlying the rectus muscle and the Veress needle was inserted. Saline drop test confirmed entry into the peritoneum. The abdomen was insufflated with carbon dioxide which the patient tolerated without incident. The abdomen was then entered using the Optiview technique and a 5 mm trocar. The laparoscope was inserted and no damage from initial trocar or Veress needle placement was noted, no gross abnormalities were noted within the 4 quadrants of the abdomen. An 11 mm port was placed in the subxiphoid position and two 5 mm ports were then placed in the right subcostal position. The patient was placed in reverse Trendelenburg position and rotated towards the left. The gallbladder was acutely inflamed. The dome of the gallbladder was retracted towards the left upper quadrant and the infundibulum was retracted toward the right lower quadrant revealing Calot's triangle. Peritoneal attachments were taken down with electrocautery and blunt dissection. The cystic duct and artery were circumferentially dissected. A window of safety was obtained showing the cystic duct entering the gallbladder with no aberrant structures noted. The cystic duct and artery were doubly clipped and divided. The gallbladder was then lifted off the gallbladder fossa with electrocautery. There was bleeding from the liver bed which was controlled with electrocautery. The gallbladder was placed in an Endo Catch bag and removed through the subxiphoid port site. The right upper quadrant was irrigated and hemostasis was found to be good. 5 mm trochars were removed under direct visualization and the abdomen was allowed to collapse. The subxiphoid port site fascia was closed with 0 Vicryl suture utilizing the Curtis-Molly device. The wound was irrigated, and the skin of all ports was closed with 4-0 Monocryl subcuticular sutures. Dermabond was placed over the wounds. The patient was extubated in the operating room and taken to the PACU where she recovered without apparent incident. All sponge, instrument and needle counts were correct at the conclusion of the procedure. The patient tolerated the procedure well. The physician's medical assistant float was present and scrubbed for the entirety of the case and was essential in positioning the patient, prepping and draping, retraction and exposure, driving the laparoscope, removal of the gallbladder, closure the incisions, and placement of the dressings. I attest to the content of the Intraoperative Record and any orders documented therein. Any exceptions are noted below.
[2021-11-01] MEDS ORDERED: MoRPHine SULFATE 4 MG/ML 1 ML CARP\\VIAL IV PRN (11:15)
--- NOTE | 2021-11-01 11:46 | Anesthesiology Progress Note ---
Date of Service November 01, 2021 Anesthesia Post Procedure Vital Signs Vital Signs: Temp Pulse Pulse Pulse Resp BP BP 11/01/21 10:50 36.5 C 62 16 125/80 11/01/21 10:40 56 L 16 128/73 11/01/21 10:30 61 16 116/65 11/01/21 10:24 36.5 C 58 L 16 120/69 11/01/21 04:16 36.6 C 80 16 127/73 10/31/21 21:31 36.7 C 72 15 106/63 10/31/21 18:17 36.8 C 69 20 114/78 10/31/21 18:00 36.8 C 59 L 18 132/77 10/31/21 17:00 70 18 10/31/21 15:00 62 18 10/31/21 13:00 73 18 10/31/21 11:56 36.7 C 74 18 132/81 BP Pulse Ox 11/01/21 10:50 95 11/01/21 10:40 96 11/01/21 10:30 94 11/01/21 10:24 94 11/01/21 04:16 97 10/31/21 21:31 98 10/31/21 18:17 96 10/31/21 18:00 98 10/31/21 17:00 118/61 95 10/31/21 15:00 132/75 100 10/31/21 13:00 128/66 93 10/31/21 11:56 100 Pain Intensity Abdomen: Pain Intensity: 3 Transfer of Care Handoff Completed per policy Notes Mental Status: alert / awake / arousable Patient Amnestic to Procedure: Yes Nausea / Vomiting: adequately controlled Pain: adequately controlled Airway Patency, RR, SpO2: stable & adequate BP & HR: stable & adequate Hydration State: stable & adequate Anesthetic Complications: no major complications apparent
--- NOTE | 2021-11-01 14:03 | Hospitalist Progress Note ---
Date of Service November 01, 2021 Assessment & Plan (1) Elevated bilirubin: Plan: repeat BMP tomorrow (2) Elevated LFTs: Plan: repeat CMP tomorrow (3) BMI 40.0-44.9, adult: Plan: intermodal customer service, diet, exercise, weight loss counseling (4) Tobacco abuse: Plan: Patient smokes a few cigarettes per day. (5) DVT prophylaxis: Plan: SCDs (6) Choledocholithiasis with acute cholecystitis: Plan: status post ERCP with sphincterotomy, stone removal then lap dion today will continue zosyn for now Plan: Likely discharge home if cleared by surgery and remains medically stable Admission and Anticipated Discharge Date Admission Date: October 31, 2021 Anticipated date of discharge: 11/02/21 Subjective Status post ERCP (sphincterotomy with stone extraction) then lap dion today Feels mildly nauseous but no vomiting Feels mild abdominal discomfort in RUQ area Tolerating clears so far Physical Exam Physical Exam: Obese, pleasant, comfortable, appears tired Respiratory: breathing comfortably on room air, no wheezing/rhonchi/rales Cardiovascular: regular rate and rhythm, no murmurs/rubs/gallop Gastrointestinal (Abdomen): hypoactive, no rebound or guarding Musculoskeletal: no edema Neurologic: awake, alert, spontaneously moving extremities Results & Data Results & Data ([facility]) Vital Signs (Past 12 Hours) Vital Signs Temp Pulse Pulse Resp BP BP Pulse Ox 11/01/21 13:50 36.6 C 54 L 16 137/74 94 11/01/21 12:55 73 18 136/81 91 11/01/21 11:47 36.8 C 59 L 18 146/87 H 91 11/01/21 10:50 36.5 C 62 16 125/80 95 11/01/21 10:40 56 L 16 128/73 96 11/01/21 10:30 61 16 116/65 94 11/01/21 10:24 36.5 C 58 L 16 120/69 94 11/01/21 04:16 36.6 C 80 16 127/73 97
[2021-11-01] MEDS: MoRPHine SULFATE 2 MG/ML CARP IV PRN ×2 (14:46→20:11)
[2021-11-01] MEDS ORDERED: CALCIUM CARBONATE 500 MG CHEWABLE TAB PO ONE (18:30)
--- NOTE | 2021-11-01 18:33 | XRay Report ---
XR chest 1V portable CLINICAL HISTORY: chest pain. COMPARISON STUDY: 10/31/2021 TECHNIQUE: 1 view of the chest FINDINGS: Single frontal view of the chest demonstrates the cardiomediastinal silhouette to be within normal li mits. There is a decreased inspiratory effort with elevation of the hemidiaphragms and crowding of th e bronchovascular markings at the lung bases and centrally. The lungs are clear of alveolar opacities . There is no evidence for pleural effusion. There is no evidence for vascular congestion. There is n o acute osseous pathology. IMPRESSION: There is a decreased inspiratory effort with otherwise no acute chest disease. ACT 112: Negative or not required by law. Electronically signed by: Meño Quarles M.D. 11/01/2021 6:31 PM
[2021-11-01 18:58] LABS: Troponin I < 0.03 ng/ml (0-0.04)
--- NOTE | 2021-11-01 19:03 | Fluoroscopy Report ---
FL ERCP biliary ductal CLINICAL HISTORY: ERCP COMPARISON STUDY: CT of the abdomen and pelvis from 10/31/2021 FLUOROSCOPY TIME: 57 seconds. FLUOROSCOPIC IMAGES: 12 FINDINGS: The common bile duct with is cannulated and multiple images were obtained following contras t injections into the common bile duct and intrahepatic biliary duct radicles. Please see intraoperat marycarmen procedure for further evaluation. IMPRESSION: Status post ERCP. ACT 112: Negative or not required by law. Electronically signed by: Meño Quarles M.D. 11/01/2021 7:01 PM
[2021-11-01 19:10] LABS: Alanine Aminotransferase 429 U/L (7-52); Albumin Globulin Ratio 1.1 (0.9-2); Albumin Level 3.7 gm/dl (3.4-5.0); Alkaline Phosphatase 164 U/L (34-104); Anion Gap 9 (3-11); Aspartate Aminotransferase 121 U/L (13-39); BUN Creatinine Ratio 10.1 (10-20); Bilirubin,Total 3.2 mg/dl (0.2-1.0); Blood Urea Nitrogen 7 mg/dl (6-23); Calcium 8.9 mg/dl (8.5-10.1); Carbon Dioxide 25 mmol/L (21-32); Chloride 101 mmol/L (98-107); Creatinine Clr Calc Pharmacy 139.9 ml/min; Est GFR (African American) 138.3 ml/min; Est GFR (Non-African American) 119.3 ml/min; Globulin 3.5 gm/dl (2.5-4.0); Glucose 152 mg/dl (70-99(Fasting)); Magnesium 1.9 mg/dl (1.7-2.4); Phosphorus 3.5 mg/dl (2.5-4.9); Potassium 3.6 mmol/L (3.5-5.1); Sodium 135 mmol/L (136-145); Total Protein 7.2 gm/dl (6.0-8.3)
[2021-11-01] MEDS: PANTOprazole 40 MG TAB PO SCH (20:34)
[2021-11-01] MEDS ORDERED: OPTIRAY 320 125ml IV ONE (21:19)
--- NOTE | 2021-11-01 22:08 | CT Scan Report ---
CT angio chest PE protocol CLINICAL HISTORY: chest pain, SOB, elevated D dimer. PE study . The patient is status post cholecyst ectomy COMPARISON STUDY: Portable chest from 11/01/2021 CT DOSE: 777.51 mGy.cm TECHNIQUE: CT Angio of the chest was performed.followed by image post processing with coronal, and s agittal MIP reformats. Contrast Volume: Optiray 320, 120 ml FINDINGS: Vasculature: There is homogeneous perfusion of the pulmonary vasculature bilaterally. No intraluminal filling defects or evidence for pulmonary embolus is seen. Airway: The airway is clear. No endobronchial lesion is identified. Lungs: Compared to yesterday's CT, there has been interval development of bibasilar atelectasis. The lungs are otherwise clear of acute alveolar opacities, air bronchograms or pulmonary nodules. Pleura: There is no evidence for pleural effusion. There is no evidence for pneumothorax. Mediastinum: There is no evidence for pathologic adenopathy. The heart size is within normal limits. The thoracic aorta is within normal limits. There is no evidence for pericardial effusion. Upper abdomen:Minimal free air is seen under the hemidiaphragms. This is characteristic of the patien t's cholecystectomy. Surgical clips are now seen. Osseous structures: There is no acute osseous pathology. Impression: 1. No CTA evidence for pulmonary embolus. 2. Bibasilar atelectasis. 3. Minimal free air under the hemidiaphragms related to the patient's cholecystectomy. ACT 112: Negative or not required by law. Electronically signed by: Meño Quarles M.D. 11/01/2021 10:06 PM
[2021-11-02] MEDS: PIPERACILLIN/TAZOBACTAM 4.5 GM in DEXTROSE 5% 100 ML IV SCH ×2 (01:53→10:00)
[2021-11-02] MEDS: MoRPHine SULFATE 2 MG/ML CARP IV PRN (04:14)
[2021-11-02 05:59] LABS: Basophils # (auto) 0.02 K/uL (0-0.2); Basophils % (auto) 0.2 %; Eosinophils # (auto) 0.18 K/uL (0-0.5); Eosinophils % (auto) 1.7 %; Hematocrit (blood only) 37.4 % (37-47); Hemoglobin 12.3 g/dL (12.0-16.0); Immature Granulocytes # (auto) 0.02 K/uL (0.00-0.02); Immature Granulocytes % (auto) 0.2 %; Lymphocytes # (auto) 2.61 K/uL (1.2-3.4); Lymphocytes % (auto) 24.9 %; Mean Corpuscular Hemoglobin 29.1 pg (25-34); Mean Corpuscular Hgb Conc 32.9 g/dL (32-36); Mean Corpuscular Volume 88.6 fL (80-100); Mean Platelet Volume 10.4 fL (7.4-10.4); Monocytes # (auto) 0.78 K/uL (0.11-0.59); Monocytes % (auto) 7.4 %; Neutrophils # (auto) 6.89 K/uL (1.4-6.5); Neutrophils % (auto) 65.6 %; Platelet Count 337 K/uL (130-400); RDW Coefficient of Variation 13.3 % (11.5-14.5); RDW Standard Deviation 43.2 fL (36.4-46.3); Red Blood Count 4.22 M/uL (4.2-5.4)
[2021-11-02 06:19] LABS: Albumin Level 3.5 gm/dl (3.4-5.0); BUN Creatinine Ratio 10.8 (10-20); Bilirubin,Total 1.9 mg/dl (0.2-1.0); Creatinine Clr Calc Pharmacy 148.5 ml/min; Est GFR (Non-African American) 121.7 ml/min; Globulin 3.4 gm/dl (2.5-4.0); Potassium 3.4 mmol/L (3.5-5.1); Total Protein 6.9 gm/dl (6.0-8.3)
[2021-11-02] MEDS ORDERED: POTASSIUM CHLORIDE CRTAB 20 MEQ TABCR PO STA ×2 (06:23→08:11)
--- NOTE | 2021-11-02 06:29 | Electrocardiogram Report ---
Test Reason : Blood Pressure : / mmHG Vent. Rate : 064 BPM Atrial Rate : 064 BPM P-R Int : 178 ms QRS Dur : 102 ms QT Int : 444 ms P-R-T Axes : 055 052 018 degrees QTc Int : 458 ms Sinus rhythm with marked sinus arrhythmia Cannot rule out Inferior infarct , age undetermined Abnormal ECG No previous ECGs available Confirmed by Girish Desai ([id number]) on 11/02/2021 6:28:53 AM Referred By: REFERRED SELF Confirmed By:Girish Desai
[2021-11-02 08:00] VITALS: PULSE 71; TEMP 98.1; O2SAT 94
[2021-11-02] MEDS: PANTOprazole 40 MG TAB PO SCH (08:32)
--- NOTE | 2021-11-02 08:53 | Gastroenterology Progress Note ---
Date of Service November 02, 2021 Assessment & Plan (1) Choledocholithiasis with acute cholecystitis: Plan: Pt is a 26 yo female seen for f/u choledocholithiasis, cholecystitis s/p ERCP w choledocholithiasis removal followed by lap dion on 11/01. Clinically doing well, LFTs improving. - Diet advancement per surgery - Avoid NSAIDs or high dose ASA 5 days after sphincterectomy - Pls recall GI prn Admission and Anticipated Discharge Date Admission Date: October 31, 2021 Supervising Physician Co-Signing Physician Notes I performed a history and physical examination of the patient today, including specifically on physical exam - soft abdomen. I have discussed the patient's management with the advanced practitioner. Please refer to the nurse practitioner's note for the documented findings and plan of care. Subjective Pt doing well, tolerating CL diet. Having less abd pain, no n/v. Review of Systems Review of Systems: All systems reviewed & are unremarkable except as noted in HPI & below Physical Exam Constitutional: WD/WN, vitals as above well groomed, cooperative and comfortable Eyes: PERRL, conjunctivae normal, anicteric sclerae ENMT: external ear and nose normal, oropharynx normal Respiratory: normal respiratory effort, lungs clear to auscultation Cardiovascular: RRR, no murmur, no edema Gastrointestinal (Abdomen): normal bowel sounds, soft, nontender, no hepatosplenomegaly Surgical site CDI w Dermabond Skin: no rashes, warm and dry no jaundice Psychiatric: A+Ox3, euthymic affect Lymphatic: no lymphedema Results & Data ([facility]) Vital Signs (Past 12 Hours) Vital Signs Temp Pulse Resp BP Pulse Ox 11/02/21 07:45 36.7 C 71 16 115/67 94 11/02/21 04:12 36.5 C 80 16 126/82 92 11/01/21 23:35 36.6 C 63 12 117/70 91
--- NOTE | 2021-11-02 11:23 | Surgery Progress Note ---
Date of Service November 02, 2021 Assessment & Plan (1) Choledocholithiasis with acute cholecystitis: Plan: POD 1 lap dion labs improving advance diet seen with Dr. Venu parker for d/c after lunch, instructions written Admission and Anticipated Discharge Date Admission Date: October 31, 2021 Supervising Physician Co-Signing Physician Notes pnt S&E, agree with above. POD#1 lap dion/ercp. Feels better, tolerating clears. incisions w/o infection. labs downtrending. adv to reg diet, okay to d/c this afternoon. f/u in 2 weeks. Subjective no nausea, minimal pain, remains on clears Physical Exam Gastrointestinal (Abdomen): Inspection/Auscultation: + abdominal surgical incision (clean, dry) Percussion/Palpation: abdomen soft Results & Data ([facility]) Vital Signs (Past 12 Hours) Vital Signs Temp Pulse Resp BP Pulse Ox 11/02/21 07:45 36.7 C 71 16 115/67 94 11/02/21 04:12 36.5 C 80 16 126/82 92 11/01/21 23:35 36.6 C 63 12 117/70 91 PG Care Time/CCT Total # of Minutes Spent Total Time Spent with Patient: Total time spent is greater than 50% in coordination of care (as documented) at patient's floor/unit and/or counseling patient: Coding Level of Care Code None Diagnoses Choledocholithiasis with acute cholecystitis K80.42
--- NOTE | 2021-11-02 12:07 | Discharge Summary ---
Date of Service November 02, 2021 Admission HPI Per Admitting Provider Patient is a 26 yo female who presented to the ED with 7 days of abdominal pain. Her pain has been severe for the past 5 days. She has had pain mostly in the right flank/side that wraps around to the RUQ. The pain is worse with a deep breath and certain movements. She otherwise doesn't feel SOB. She has had nausea and vomiting, but she hasn't been able to eat much of anything the past couple of days. She hasn't noticed that certain foods make her symptoms worse or that she had this type of pain in the past prior to now. She has family history of her brother and father needing cholecystectomy. She was seen at [facility] ED the past 2 days and was sent home on both occasions. Her LFTs yesterday showed AST 499, ALT 787, TBili 3.2. US showed cholelithiasis. She decided to come to the [facility] ER for another opinion because her pain came back today and was severe again. In the ED, patient was noted to have normal WBC counter, TBili 4.5, Direct Bili 2.8, AST 236, ALT 603, and Alk Phos 179. CT of the abd/pelvis showed Hepatomegaly and hepatic steatosis, ad cholelithiasis. No evidence of acute cholecystitis. Principal Diagnosis Choledocholithiasis with cholecystitis Abnormal LFTs Abnormal Bilirubin Discharge Exam Obese, sitting in chair, no acute distress Reports no further episode of chest pain or shortness of breath Tolerated clears for breakfast Discharge Data Allergies Allergy/AdvReac Type Severity Reaction Status Date / Time Sulfa (Sulfonamide Allergy Unknown Verified 10/31/21 16:17 Antibiotics) Consultations 10/31/21 15:26 Consult Gastroenterology Routine Consult General Surgery Routine ED Decision to Admit Stat Procedures Performed Operation Date: 11/01/21 11:00 Actual Procedures p Laparoscopic Cholecystectomy - Fritz Lea DO, FACS s Endoscopic Retrograde Cholangiopancreatography with Sphincterotomy and Balloon Sweep - Keith Mays MD s Endoscopic Ultrasonography Upper - Keith Mays MD s Esophagogastroduodenoscopy - Keith Mays MD Ordered Studies 10/31/21 13:22 CT abd pelvis IV con only Stat 11/01/21 [place] ERCP biliary ductal Routine 11/01/21 07:33 US upper EUS PACS images Routine 11/01/21 18:22 CT angio chest PE protocol Urgent Hospital Course (1) Elevated bilirubin: Improved (2) Elevated LFTs: Improved (3) BMI 40.0-44.9, adult: intermodal dispatcher, diet, exercise, weight loss counseling (4) Tobacco abuse: Patient smokes a few cigarettes per day. Counseled complete smoking cessation (5) DVT prophylaxis: SCDs (6) Choledocholithiasis with acute cholecystitis: status post ERCP with sphincterotomy, stone removal then lap dion 11/01 Pre and Post operative, was placed on zosyn. WBC mildly elevated compared to previous day with left shift. No signs/symptoms of sepsis. Will discharge on Augmentin for another 3 days. Post op, complained of chest pain and shortness of breath after dinner. EKG no dynamic ischemic changes. CTA chest negative for PE. Likely gas pain from surgery, discomfort resolved at time of discharge Cleared by surgery for discharge after lunch Will follow up with surgery for post op evaluation Total Time Total Time Spent Total Time Spent (In Minutes): 35 Discharge Plan Discharge Items Patient Disposition: Home - Self-Care Reason For Visit: RUQ PAIN Discharge Diagnosis: Choledocholithiasis Laparoscopic cholecystectomy ERCP Condition on Discharge: Good Activity: As commented below Lifting: No more than 10 pounds Lifting Comment: limit 10-20 pounds for 1 month Bathing Comment: ok to shower Driving/Machine Use: Resume 3 days after discharge Non-emergency contact: Surgeon Call non-emergency contact if: you have any medication questions, your pain is not controlled, you have a fever, your temperature is above 101.5 and your wound has increased redness Follow-up/Referrals: Fritz Lea DO, JANET [Physician] - (Please call to make an appt in approx 2 weeks) Elfego Hawley MD [Outside Practitioners] - (Date & Time 11/06/2021 11:40 AM Provider Elfego Hawley MD [facility] ) Diet: Low Fat Addtl Attending Provider Instructions: Do not take any NSAIDS (ibuprofen, naproxen or aspirin) for 5 days Pending Studies at Discharge: Yes Studies:: Surgical specimen Stand-Alone Forms: [employer], Work/School Release, Smoking Cessation Medications and DC Order Prescriptions: New oxycodone-acetaminophen [Percocet] 5-325 mg tablet 1 - 2 tab PO Q4H PRN (Reason: pain, initial therapy, max 6 daily) Qty: 15 RF: 0 amoxicillin-pot clavulanate 875-125 mg tablet 1 tab PO BID 3 Days Qty: 6 RF: 0 Continued ondansetron HCl 4 mg tablet 4 mg PO DAILY PRN (Reason: Nausea) RF: 0 Discharge Orders: Discharge Order (Routine); Ordered 11/02/21 Ordered By: Virginie Reyes/Other Patient Handouts: Cholecystectomy, Smoking Get Help for Quitting Admission Data Admit Date/Time: 10/31/21 16:11 Attending Provider: Virginie Claros Admit Provider: Vic Hua Primary Care Provider: PCP,NO Other Providers: Vic Hua ; Keith Mays ; Fritz Lea
[2021-11-02 13:32] VITALS: BP 137/74
== END 2021-11-02 14:26 | disposition home or self-care (01) | DRG 418 ==
LOC: ED 11:50 → 3N 16:11 → SUATTDRO 16:11 → 3N 18:00